=== PATIENT | female | born 1990 | race Caucasian/White ===

== ENCOUNTER → 2018-01-31 | Outpatient (CLI) | payer BC | LOC: SUN.DIA 08:26 | DX: O24.419 Gestational diabetes mellitus in pregnancy, unspecified control (principal); Z3A.29 29 weeks gestation of pregnancy | CPT/HCPCS: G0108 ==

== ENCOUNTER → 2018-02-15 | Outpatient (CLI) | payer BC | LOC: SUN.DIA 09:11 | DX: O24.419 Gestational diabetes mellitus in pregnancy, unspecified control (principal); Z3A.31 31 weeks gestation of pregnancy | CPT/HCPCS: G0108 ==

== ENCOUNTER → 2018-03-07 | Outpatient (CLI) | payer BC | LOC: SUN.DIA 13:52 | DX: O24.419 Gestational diabetes mellitus in pregnancy, unspecified control (principal); Z3A.33 33 weeks gestation of pregnancy | CPT/HCPCS: G0108 ==

== ENCOUNTER → 2018-03-27 | Outpatient (CLI) | payer BC | LOC: SUN.DIA 13:53 | DX: O24.419 Gestational diabetes mellitus in pregnancy, unspecified control (principal); Z3A.36 36 weeks gestation of pregnancy | CPT/HCPCS: G0108 ==

== ENCOUNTER 2018-04-17 05:58 | Inpatient (IN) | payer BC ==
[~2018-04-17] VITALS: Ht 157.5 cm; Wt 80.5 kg
[2018-04-17] VITALS (38 sets, daily range): BP systolic 102–150; BP diastolic 60–86; PULSE 64–101; TEMP 98.4–99.9
[2018-04-17] MEDS ORDERED: PRENATAL 191 CTB PO (06:34)
[2018-04-17] MEDS ORDERED: COLACE 100100 MG/CAP PO (06:35)
[2018-04-17] MEDS ORDERED: VALTREX1 GM PO (06:35)
[2018-04-17 09:07] LABS: BASO % 0.2 % (0.0-2.0); EOS % 0.1 % (0-4.0); GRAN # 13.5 (1.4-6.5); GRAN % 85.7 % (42.2-75.2); HEMATOCRIT 37.4 % (37.0-47.0); HEMOGLOBIN 13.4 g/dl (12.5-16.0); LYMPH # 1.3 (1.2-3.4); LYMPH % 8.2 % (20.0-51.0); MEAN CELL VOLUME 90 fl (80.0-100.0); MEAN CORPUSCULAR HEMOGLOBIN 32 pg (27.0-31.0); MEAN CORPUSCULAR HGB CONC 36 g/dl (33.0-37.0); MEAN PLATELET VOLUME 10.2 fl (7.4-10.4); MONO # 0.8 (0.1-0.6); MONO % 5.3 % (1.7-9.3); PLATELET COUNT 169 K/mm3 (130-400); RED BLOOD COUNT 4.18 M/mm3 (4.10-5.30); REDCELL DISTRIBUTION WIDTH-CV 12.8 % (11.5-14.5)
[2018-04-18 01:20] VITALS: BP 127/74; PULSE 66; TEMP 97.5
[2018-04-18 05:04] VITALS: BP 103/69; PULSE 68; TEMP 97.5
[2018-04-18] MEDS ORDERED: IBU600 MG PO (09:00)
[2018-04-18 09:21] VITALS: BP 103/63; PULSE 66; TEMP 97.3
[2018-04-18 12:54] VITALS: BP 115/77; PULSE 67; TEMP 97.3
[2018-04-18 15:58] VITALS: BP 114/65; PULSE 71; TEMP 97.5
[2018-04-18 20:15] VITALS: BP 111/70; PULSE 69
[2018-04-19 08:22] VITALS: BP 114/72; PULSE 76; TEMP 97.8
== END 2018-04-19 11:20 | disposition home or self-care (01) | DRG 806 ==
LOC: LDRO 05:58 → LDR 08:22 → OB 19:45
PROVIDERS: Obstetrics & Gynecology
PROC: 10E0XZZ Delivery of Products of Conception, External Approach (ICD-10-PCS; principal; 2018-04-17)
PROC: 0HQ9XZZ Repair Perineum Skin, External Approach (ICD-10-PCS; 2018-04-17)
DX: O70.0 First degree perineal laceration during delivery (principal); O98.32 Other infections with a predominantly sexual mode of transmission complicating childbirth; Z37.0 Single live birth; O24.420 Gestational diabetes mellitus in childbirth, diet controlled; Z3A.39 39 weeks gestation of pregnancy; O26.893 Other specified pregnancy related conditions, third trimester
CPT/HCPCS: J2590; J2791; J7120

== ENCOUNTER → 2018-06-11 | Outpatient (CLI) | payer BC ==
[~2018-06-11] MED LIST: COLACE 100100 MG/CAP PO; IBU600 MG PO; PRENATAL 191 CTB PO; VALTREX1 GM PO
== END ==
LOC: OLC 09:54
DX: Z39.1 Encounter for care and examination of lactating mother (principal); Z71.89 Other specified counseling

== ENCOUNTER → 2019-08-13 | Outpatient (CLI) | payer BC ==
[~2019-08-13] MED LIST changes: +BCP TD; +BONJESTA ER 201 EACH PO; +FLEXERIL5 MG PO; +MOTRIN800 MG PO; +PERCOCET 325 MG1 TA2 PO; +PREDNISONE10 MG PO; +VALTREX 50500 MG/TAB PO; +VICODIN 5/5001 UDTAB PO
== END ==
LOC: DIA.ED 09:26
DX: O24.419 Gestational diabetes mellitus in pregnancy, unspecified control (principal)
CPT/HCPCS: G0108

== ENCOUNTER → 2019-09-08 | Outpatient (CLI) | payer BC | LOC: DIA.ED 11:22 | DX: O24.419 Gestational diabetes mellitus in pregnancy, unspecified control (principal) | CPT/HCPCS: G0108 ==

== ENCOUNTER 2020-03-20 02:50 | Emergency (ER) | payer BC ==
[~2020-03-20] VITALS: Ht 160 cm; Wt 63.6 kg
[2020-03-20 02:56] VITALS: BP 106/71; TEMP 98.2
[2020-03-20 03:12] LABS: BASO % 0.5 % (0.0-2.0); EOS # 0.2 (0.0-0.7); EOS % 3.6 % (0-4.0); GRAN # 2.6 (1.4-6.5); GRAN % 42.5 % (42.2-75.2); LYMPH # 2.8 (1.2-3.4); LYMPH % 45.9 % (20.0-51.0); MEAN CELL VOLUME 87 fl (80.0-100.0); MEAN CORPUSCULAR HEMOGLOBIN 29 pg (27.0-31.0); MEAN CORPUSCULAR HGB CONC 33 g/dl (33.0-37.0); MEAN PLATELET VOLUME 9.4 fl (7.4-10.4); MONO # 0.5 (0.1-0.6); MONO % 7.3 % (1.7-9.3); PLATELET COUNT 199 K/mm3 (130-400); RED BLOOD COUNT 4.83 M/mm3 (4.10-5.30); REDCELL DISTRIBUTION WIDTH-CV 12.3 % (11.5-14.5)
[2020-03-20 03:24] LABS: ALANINE AMINOTRANSFERASE 15 U/L (4-34); ALBUMIN 4.5 gm/dL (3.5-5.0); ALKALINE PHOSPHATASE 70 U/L (50-136); ANION GAP 10 mmol/L (7-16); AST,SGOT 23 U/L (15-37); BILIRUBIN,TOTAL 0.4 mg/dL (0.0-1.0); BLOOD UREA NITROGEN 15 mg/dL (7-17); C-REACTIVE PROTEIN < 0.5 mg/dL (0.0-0.9); CARBON DIOXIDE 27 mmol/L (22-30); CHLORIDE 107 mmol/L (98-107); CREATININE, serum 0.76 (0.52-1.25); GLUCOSE 91 mg/dL (74-106); LIPASE 59 U/L (23-300); POTASSIUM 4.2 mmol/L (3.4-5.0); SODIUM 144 mmol/L (137-145); TOTAL PROTEIN 7.2 gm/dL (6.4-8.2)
[2020-03-20 04:43] LABS: COLLECTION METHOD CLEAN CATCH
[2020-03-20 04:51] LABS: MUCOUS Present /lpf; PH 5 (5-8); SQUAMOUS EPITHELIAL 0-2 /hpf; URINE APPEARANCE Clear; URINE BACTERIA None Seen /hpf; URINE BILIRUBIN Negative (NEGATIVE); URINE BLOOD 1+ (NEGATIVE); URINE COLOR Yellow; URINE GLUCOSE Negative (NEGATIVE); URINE KETONE Negative (NEGATIVE); URINE LEUKOCYTE ESTERASE Negative (NEGATIVE); URINE NITRATE Negative (NEGATIVE); URINE PROTEIN(semi-quant) Negative (NEGATIVE); URINE RBC 0-2 /hpf; URINE UROBILINOGEN Negative (NEGATIVE)
[2020-03-20 10:35] VITALS: PULSE 69
== END 2020-03-20 10:35 | disposition home or self-care (01) ==
LOC: COL.ER 02:50
PROVIDERS: Emergency Medicine
DX: R10.31 Right lower quadrant pain (principal); Z32.02 Encounter for pregnancy test, result negative; Z90.49 Acquired absence of other specified parts of digestive tract
CPT/HCPCS: J2550; J3010; J7030; Q9967

== ENCOUNTER 2022-03-25 02:30 | Emergency (ER) | payer BC ==
[~2022-03-25] VITALS: Ht 157.5 cm; Wt 67.3 kg
[2022-03-25 02:38] VITALS: TEMP 98
[2022-03-25 03:20] LABS: HEMOGLOBIN 14.2 g/dl (12.5-16.0); MEAN CELL VOLUME 86 fl (80.0-100.0); MEAN CORPUSCULAR HEMOGLOBIN 31 pg (27-31); MEAN CORPUSCULAR HGB CONC 36 g/dl (33.0-37.0); MEAN PLATELET VOLUME 10.6 fl (7.4-10.4); RED BLOOD COUNT 4.65 M/mm3 (4.10-5.30); REDCELL DISTRIBUTION WIDTH-CV 11.8 % (11.5-14.5)
[2022-03-25 03:21] LABS: ALBUMIN 4.3 gm/dL (3.5-5.0); BILIRUBIN,TOTAL 0.9 mg/dL (0.2-1.2); C-REACTIVE PROTEIN 0.05 mg/dL (0.00-0.50); CALCIUM 9.2 mg/dL (8.4-10.2); CREATININE, serum 0.78 mg/dL (0.57-1.11); POTASSIUM 4.1 mmol/L (3.5-4.5)
[2022-03-25 03:47] LABS: PLATELET ESTIMATE DECREASED (NORMAL)
[2022-03-25 03:51] LABS: COLLECTION METHOD CLEAN CATCH
[2022-03-25 04:01] LABS: URINE APPEARANCE Clear (CLEAR/HAZY); URINE COLOR Yellow (YELLOW); URINE GLUCOSE Negative (NEGATIVE); URINE KETONE Negative (NEGATIVE); URINE PROTEIN(semi-quant) Negative (NEGATIVE); URINE UROBILINOGEN 0.2 E.U/dL (0.2-1.0)
[2022-03-25 04:02] LABS: URINE BLOOD TRACE-INTACT (NEGATIVE); URINE NITRATE Negative (NEGATIVE)
[2022-03-25 04:09] LABS: MUCOUS Present (NOT PRESENT); SQUAMOUS EPITHELIAL 0-2 /hpf (0-10); URINE BACTERIA Rare /hpf (NONE SEEN)
[2022-03-25 04:15] LABS: PLATELET COUNT 126 K/mm3 (130-400)
[2022-03-25 05:05] VITALS: BP 125/84
[2022-03-25 06:55] VITALS: PULSE 65
== END 2022-03-25 06:55 | disposition home or self-care (01) ==
LOC: COL.ER 02:30
PROVIDERS: Family Medicine
DX: R10.10 Upper abdominal pain, unspecified (principal); Z32.02 Encounter for pregnancy test, result negative
CPT/HCPCS: J2270; J2405; J7120; Q9967